=== PATIENT | female | born 1935 | race Caucasian/White ===

== ENCOUNTER 2016-12-03 18:45 | Inpatient (IN) | payer MEDICARE, OTHER ==
[~2016-12-03] VITALS: Ht 157.5 cm; Wt 60.4 kg
[2016-12-03] MEDS ORDERED: DIAZEPAM 10 MG/2 ML SYR ONE ×2 (19:56→23:02)
[2016-12-03] MEDS ORDERED: ONDANSETRON 4 MG VIAL ONE ×2 (19:56→23:02)
[2016-12-03] MEDS ORDERED: SODIUM CHLORIDE 0.9% 500 ML IV ONE (19:56)
[2016-12-04] VITALS (7 sets, daily range): BP systolic 130–168; RESP 16–20; TEMP 97.5–97.9; Ht 157.5 cm; Wt 60.4 kg
[2016-12-04] MEDS ORDERED: Meclizine HCl 25 MG TAB ONE (00:54)
[2016-12-04] MEDS ORDERED: Meclizine HCl 25 MG TAB PO SCH ×2 (01:08→06:00)
[2016-12-04] MEDS ORDERED: PROMETHAZINE 25 MG/ML VIAL IV PRN (01:10)
[2016-12-04] MEDS ORDERED: DIAZEPAM 10 MG/2 ML SYR IV PRN (01:10)
[2016-12-04] MEDS ORDERED: SOD CHLOR 0.9% 1000 ML IV SCH (01:10)
[2016-12-04] MEDS: ONDANSETRON 4 MG VIAL IV PUSH SCH ×5 (04:06→20:45)
[2016-12-04] MEDS: SODIUM CHLOR 0.9% W/KCL 20MEQ 1,000 ML IV SCH ×2 (06:34→19:42)
[2016-12-04] MEDS ORDERED: CETIRIZINE 10 MG TAB PO SCH ×2 (09:00→21:00)
[2016-12-04] MEDS: ASPIRIN 81 MG CHEW TAB PO SCH (10:21)
[2016-12-04] MEDS: DILTIAZEM CD 180 MG CAP PO SCH (10:21)
[2016-12-04] MEDS: DOCUSATE SOD 100 MG CAP PO SCH ×2 (10:23→20:44)
[2016-12-04] MEDS: FAMOTIDINE 20 MG INJ IV SCH ×2 (10:23→20:45)
[2016-12-04] MEDS: ACETAMINOPHEN 325 MG TAB PO PRN (15:41)
[2016-12-04] MEDS: Meclizine HCl 25 MG TAB PO SCH ×2 (15:42→20:45)
[2016-12-04] MEDS ORDERED: SERTRALINE 20 MG/ML PO SCH (21:00)
[2016-12-04] MEDS ORDERED: SERTRALINE 25 MG TAB PO SCH (21:02)
[2016-12-05 03:24] VITALS: BP_SYST 146; RESP 18; TEMP 97.7
[2016-12-05] MEDS: ONDANSETRON 4 MG VIAL IV PUSH SCH ×3 (04:00→09:17)
[2016-12-05] MEDS: ACETAMINOPHEN 325 MG TAB PO PRN (06:13)
[2016-12-05 07:37] VITALS: BP_SYST 143; RESP 20; TEMP 97.6
[2016-12-05] MEDS: DOCUSATE SOD 100 MG CAP PO SCH (09:00)
[2016-12-05] MEDS: Meclizine HCl 25 MG TAB PO SCH (09:12)
[2016-12-05] MEDS: DILTIAZEM CD 180 MG CAP PO SCH (09:15)
[2016-12-05] MEDS: ASPIRIN 81 MG CHEW TAB PO SCH (09:16)
[2016-12-05] MEDS: FAMOTIDINE 20 MG INJ IV SCH (09:17)
[2016-12-05] MEDS: SODIUM CHLOR 0.9% W/KCL 20MEQ 1,000 ML IV SCH (09:20)
[2016-12-05] MEDS ORDERED: KCL CR 20 MEQ TAB PO ONE (10:25)
[2016-12-05 10:48] VITALS: BP_SYST 148; RESP 20; TEMP 98.3
[2016-12-05 10:51] VITALS: BP_SYST 148; RESP 20; TEMP 98.3
== END 2016-12-05 11:52 | disposition home or self-care (01) | DRG 149 ==
LOC: ENRESERVDT → ENRESERVTM → ER 18:45 → EMR 18:46 → UNDOADMOB 12-04 00:38 → 4NT 12-04 01:59 → OBSVTOIN 12-04 09:09 → ENPENDDIS 12-04 09:09
PROVIDERS: ADMIT Internal Medicine; ATTEND Internal Medicine
DX: R42 Dizziness and giddiness (principal); I48.91 Unspecified atrial fibrillation; Z79.01 Long term (current) use of anticoagulants; Z79.82 Long term (current) use of aspirin; I48.2 Chronic atrial fibrillation; Z86.73 Personal history of transient ischemic attack (TIA), and cerebral infarction without residual deficits; E78.5 Hyperlipidemia, unspecified; M81.0 Age-related osteoporosis without current pathological fracture; K59.09 Other constipation; F03.90 Unspecified dementia, unspecified severity, without behavioral disturbance, psychotic disturbance, mood disturbance, and anxiety; E87.6 Hypokalemia; R11.2 Nausea with vomiting, unspecified
CPT/HCPCS: 36415; 70450; 70551; 80048; 80053; 81001; 82553; 82607; 82746; 83690; 84439; 84443; 84484; 85025; 85610; 85730; 87077; 87088; 87186; 93005; 96361; 96374; 96375; 96376